=== PATIENT | female | born 1950 | race Hispanic/Latino ===

== ENCOUNTER 2017-10-20 08:26 | Day surgery (SDC) | payer OTHER ==
[~2017-10-20] VITALS: Ht 157.5 cm; Wt 81.2 kg
[~2017-10-20 08:26] MED LIST: ASPI-1197 PO; ATOR40TA69 PO; CALC-135 PO; CLOP75TA32 PO; HYDR12.530 PO; INVOK100TB PO; LISI10TA7 PO; METF500T6 PO; MULT-1258 PO; SODIUM CHLORIDE 0.9% 1000ML 1,000 ML IV ONE
[2017-10-20 09:36] VITALS: BP 155/72
[2017-10-20] MEDS ORDERED: MEPERIDINE-PF 50 MG/ML SYG ONE ×2 (10:05)
[2017-10-20] MEDS ORDERED: MIDAZOLAM HCL 1 MG/ML 2ML VIAL ONE ×2 (10:06→10:18)
[2017-10-20 10:35] VITALS: BP 88/35
[2017-10-20] MEDS ORDERED: SODIUM CHLORIDE 0.9% 1000ML 1,000 ML IV ONE (10:48)
== END 2017-10-20 11:25 ==
LOC: ENDO 08:26 → DAH 08:26 → ENDO 11:25
PROVIDERS: ATTEND Internal Medicine Gastroenterology
DX: Z12.11 Encounter for screening for malignant neoplasm of colon (principal); Z68.35 Body mass index [BMI] 35.0-35.9, adult; I10 Essential (primary) hypertension; E78.5 Hyperlipidemia, unspecified; I25.10 Atherosclerotic heart disease of native coronary artery without angina pectoris; E11.9 Type 2 diabetes mellitus without complications; Z95.1 Presence of aortocoronary bypass graft; Z79.899 Other long term (current) drug therapy; Z79.84 Long term (current) use of oral hypoglycemic drugs
CPT/HCPCS: 82948 ×2; A4606; G0121; J2175 ×2; J2250; J7030 ×2

== ENCOUNTER → 2019-01-13 | Outpatient (CLI) | payer OTHER ==
[~2019-01-13] MED LIST changes: +METF-444 PO; -METF500T6 PO; -SODIUM CHLORIDE 0.9% 1000ML 1,000 ML IV ONE
== END | disposition home or self-care (01) ==
LOC: RAH 09:08
PROVIDERS: ATTEND Internal Medicine Critical Care Medicine
DX: I65.23 Occlusion and stenosis of bilateral carotid arteries (principal); I51.7 Cardiomegaly
CPT/HCPCS: 93306; 93880

== ENCOUNTER 2019-01-28 05:30 | Day surgery (SDC) | payer OTHER ==
[~2019-01-28] VITALS: Ht 157.5 cm; Wt 77.6 kg
[~2019-01-28 05:30] MED LIST changes: +CALC-190 PO; +FOLI1TAB15 PO; -INVOK100TB PO; +IRON; -METF-444 PO; +METF-446 PO; -MULT-1258 PO
[2019-01-28] MEDS ORDERED: SODIUM CHLORIDE 0.9% 1000ML 1,000 ML IV ONE (05:47)
[2019-01-28 06:04] VITALS: BP 163/53
[2019-01-28] MEDS ORDERED: PROPOFOL 10 MG/ML 20ML VIAL IV ONE (06:41)
[2019-01-28] MEDS ORDERED: LIDOCAINE HCL 2% 20ML ONE (06:41)
[2019-01-28] MEDS ORDERED: FENTANYL CITRATE PF 50 MCG/1 ML 2ML VIAL ONE (06:41)
[2019-01-28] MEDS ORDERED: GLYCOPYRROLATE 0.2 MG/ML 5 ML VIAL ONE (06:44)
[2019-01-28 08:11] VITALS: BP 91/37
[2019-01-28 08:18] VITALS: BP 106/44
[2019-01-28 08:23] VITALS: BP 113/47
[2019-01-28 08:28] VITALS: BP 107/53
== END 2019-01-28 08:40 | disposition home or self-care (01) ==
LOC: DAH 05:30 → ENDO 05:30
PROVIDERS: ATTEND Internal Medicine
DX: Z12.11 Encounter for screening for malignant neoplasm of colon (principal); K29.50 Unspecified chronic gastritis without bleeding; K62.1 Rectal polyp; K31.89 Other diseases of stomach and duodenum; K22.8 Other specified diseases of esophagus; D50.9 Iron deficiency anemia, unspecified; K64.0 First degree hemorrhoids; K57.30 Diverticulosis of large intestine without perforation or abscess without bleeding; K64.8 Other hemorrhoids; K25.9 Gastric ulcer, unspecified as acute or chronic, without hemorrhage or perforation; I10 Essential (primary) hypertension; I25.10 Atherosclerotic heart disease of native coronary artery without angina pectoris; Z68.31 Body mass index [BMI] 31.0-31.9, adult; Z79.899 Other long term (current) drug therapy; Z95.5 Presence of coronary angioplasty implant and graft; Z95.1 Presence of aortocoronary bypass graft; Z98.890 Other specified postprocedural states; E78.2 Mixed hyperlipidemia
CPT/HCPCS: 43239; 45380; 82948 ×2; 93005; A4606; J2704; J3010; J3490 ×2; J7030

== ENCOUNTER → 2020-04-26 | Outpatient (CLI) | payer OTHER | END | disposition home or self-care (01) | LOC: RAH 07:42 | PROVIDERS: ATTEND Internal Medicine Critical Care Medicine | DX: G31.1 Senile degeneration of brain, not elsewhere classified (principal); I67.82 Cerebral ischemia; R20.2 Paresthesia of skin | CPT/HCPCS: 70551 ==

== ENCOUNTER → 2022-04-21 | Outpatient (CLI) | payer OTHER ==
[~2022-04-21] MED LIST changes: +LISI10TA24 PO; -LISI10TA7 PO
== END | disposition home or self-care (01) ==
LOC: RAH 07:51
PROVIDERS: ATTEND Surgery
DX: R12 Heartburn (principal)
CPT/HCPCS: 74240

== ENCOUNTER → 2023-07-20 | Outpatient (CLI) | payer OTHER | END | disposition home or self-care (01) | LOC: RAH 12:27 | PROVIDERS: ATTEND Internal Medicine Critical Care Medicine | DX: R60.9 Edema, unspecified (principal) | CPT/HCPCS: 93970 ==

== ENCOUNTER 2024-01-12 23:21 | Emergency (ER) | payer OTHER ==
[~2024-01-12] VITALS: Ht 154.9 cm; Wt 63.5 kg
[2024-01-12 23:39] LABS: BASOPHILS # (AUTO) 0.02 K/uL (0.00-0.20); BASOPHILS % (AUTO) 0.2 % (0.0-5.0); EOSINOPHILS # (AUTO) 0.14 K/uL (0.00-0.70); EOSINOPHILS % (AUTO) 1.2 % (0.0-8.0); HEMATOCRIT 36.2 % (36-48); IMMATURE GRANULOCYTE ABSOLUTE 0.08 K/uL (0-1); LYMPHOCYTES # (AUTO) 1.1 K/uL (1.0-4.8); LYMPHOCYTES % (AUTO) 9.5 % (21.0-51.0); MEAN CORPUSCULAR HEMOGLOBIN 31.5 pg (27.0-33.0); MEAN CORPUSCULAR HGB CONC 35.6 g/dL (32.0-36.0); MEAN CORPUSCULAR VOLUME 88.3 fL (79-99); MONOCYTES # (AUTO) 0.9 K/uL (0.1-1.0); MONOCYTES % (AUTO) 7.4 % (3.0-13.0); NEUTROPHILS # (AUTO) 9.4 K/uL (1.8-7.7); PLATELET COUNT (AUTO) 240 K/uL (130-400); RED CELL DISTRIBUTION WIDTH 11.9 % (11.0-15.5); WHITE BLOOD COUNT (AUTO) 11.6 K/uL (4.8-10.8)
[2024-01-12 23:51] LABS: ALBUMIN 3.4 g/dL (3.5-5.0); BILIRUBIN,TOTAL 0.6 mg/dL (0.2-1.0); CREATININE 1.6 mg/dL (0.5-1.0); POTASSIUM 4.6 mmol/L (3.5-5.1); TOTAL PROTEIN, SERUM 7.6 g/dL (6.0-8.3)
[2024-01-13 00:20] LABS: INR 1.01 (0.85-1.15); PROTHROMBIN TIME 11.9 SEC (9.6-11.6)
[2024-01-13 00:21] LABS: PARTIAL THROMBOPLASTIN TIME 41.2 SEC (26.3-35.5)
[2024-01-13] MEDS ORDERED: CEPH500B PO (00:59)
[2024-01-13 01:13] VITALS: BP 112/53; PULSE 85; RESP 18; O2SAT 96
== END 2024-01-13 01:54 | disposition home or self-care (01) ==
LOC: EDH 23:21
DX: S01.81XA Laceration without foreign body of other part of head, initial encounter (principal); W18.39XA Other fall on same level, initial encounter; Y93.89 Activity, other specified; Y92.89 Other specified places as the place of occurrence of the external cause; Y99.8 Other external cause status
CPT/HCPCS: 36415; 70450; 70486; 72125; 80053; 85025; 85610; 85730

== ENCOUNTER → 2024-06-15 | Outpatient (CLI) | payer OTHER ==
[~2024-06-15] MED LIST changes: +CEPH500B PO
== END | disposition home or self-care (01) ==
LOC: RAH 08:28
PROVIDERS: ATTEND Internal Medicine Critical Care Medicine
DX: R92.0 Mammographic microcalcification found on diagnostic imaging of breast (principal); R92.323 Mammographic fibroglandular density, bilateral breasts; R92.8 Other abnormal and inconclusive findings on diagnostic imaging of breast
CPT/HCPCS: 76641; 77065

== ENCOUNTER → 2025-05-22 | Outpatient (CLI) | payer OTHER ==
[2025-05-22] MEDS: REGADENOSON 0.4 MG/5 ML PF SYG IVP ONE (11:30)
== END | disposition home or self-care (01) ==
LOC: RAH 08:42
PROVIDERS: ATTEND Internal Medicine Cardiovascular Disease
DX: I25.119 Atherosclerotic heart disease of native coronary artery with unspecified angina pectoris (principal)
CPT/HCPCS: 78452; 93017; J2785; A9500 ×2